=== PATIENT | female | born 1970 | race Caucasian/White ===

== ENCOUNTER 2018-04-04 23:17 | Emergency (ER) | payer MEDICARE, OTHER ==
[2018-04-04] MEDS ORDERED: BUPIVACAINE 0.5 % PF 150 MG/30 ML VIAL ONE (23:59)
[2018-04-05] MEDS ORDERED: BUPIVACAINE 0.5 % PF 150 MG/30 ML VIAL IJ ONE
[2018-04-05] MEDS ORDERED: LIDOCAINE HCL/PF 1% 30 ML SDV ONE
[2018-04-05] MEDS ORDERED: LIDOCAINE HCL/PF 1% 30 ML SDV IJ ONE (00:30)
== END 2018-04-05 00:38 | disposition home or self-care (01) ==
DX: S93.114A Dislocation of interphalangeal joint of right lesser toe(s), initial encounter (principal); F17.200 Nicotine dependence, unspecified, uncomplicated; W22.01XA Walked into wall, initial encounter; Y93.89 Activity, other specified; Y92.89 Other specified places as the place of occurrence of the external cause; Y99.8 Other external cause status

== ENCOUNTER 2018-07-31 18:55 | Emergency (ER) | payer MEDICARE, OTHER ==
--- NOTE | 2018-07-31 19:36 | NUR ---
called pt in wr, no response
== END 2018-07-31 19:53 | disposition home or self-care (01) ==
LOC: ER 18:56
DX: Z53.21 Procedure and treatment not carried out due to patient leaving prior to being seen by health care provider (principal)

== ENCOUNTER 2019-08-22 15:39 | Emergency (ER) | payer BC, MEDICARE, OTHER ==
[~2019-08-22] VITALS: Ht 162.6 cm; Wt 113.4 kg
[2019-08-22] MEDS ORDERED: IV NS 0.9% 500 ML BAG IV ONE (16:30)
[2019-08-22] MEDS ORDERED: ONDANSETRON HCL/PF - ER 4 MG/2 ML VIAL IV ONE (16:30)
[2019-08-22 16:39] LABS: BASOPHILS % (AUTO) 0.5 % (0.0-2.0); EOSINOPHILS % (AUTO) 1.3 % (0.0-6.0); HEMATOCRIT 40 % (33-45); HEMOGLOBIN 13.4 g/dL (11.5-14.8); LYMPHOCYTES # (AUTO) 1.5 /CMM (0.8-4.8); LYMPHOCYTES % (AUTO) 21.7 % (20.0-44.0); MEAN CORPUSCULAR HGB CONC 33 g/dl (31.0-36.0); MEAN CORPUSCULAR VOLUME 92 fL (82-100); MONOCYTES # (AUTO) 0.8 /CMM (0.1-1.30); MONOCYTES % (AUTO) 12.1 % (2.0-12.0); NEUTROPHILS # (AUTO) 4.5 /CMM (1.8-8.9); NEUTROPHILS % (AUTO) 64.4 % (43.0-81.0); PLATELET COUNT (AUTO) 290 /CMM (150-450); RED BLOOD CELL COUNT(AUTO) 4.39 MIL/uL (4.0-5.2)
--- NOTE | 2019-08-22 16:41 | NUR ---
PT REC;D TO ER C/O DIARRHEA FOR 1 WEK IV STARTED 20G IV LET AC LABS AND UA SENT TO LAB AWAITING EVALUATION BY ER PROVIDER.
[2019-08-22] MEDS ORDERED: ONDANSETRON HCL/PF 4 MG/2 ML VIAL ONE (16:47)
--- NOTE | 2019-08-22 16:52 | NUR ---
PT GIVEN MEDS PER MD ORDER VSS TALKING ON THE PHONE
[2019-08-22 16:54] LABS: ALBUMIN 3.5 g/dL (3.4-5.0); BILIRUBIN,DIRECT 0.1 mg/dL (0.0-0.2); BILIRUBIN,TOTAL 0.2 mg/dL (0.2-1.0); CALCIUM, SERUM 9.3 mg/dL (8.5-10.1); CREATININE 0.8 mg/dL (0.6-1.3); POTASSIUM 4.1 mmol/L (3.5-5.1); TOTAL PROTEIN, SERUM 7.5 g/dL (6.4-8.2)
[2019-08-22 16:56] LABS: BILIRUBIN,URINE Negative (NEGATIVE); BLOOD, URINE Large Ery/uL (NEGATIVE); COLOR,URINE Yellow (YELLOW); KETONES,URINE Negative (NEGATIVE); LEUKOCYTE ESTERASE ,URINE Small (NEGATIVE); NITRITE, URINE Negative (NEGATIVE); PROTEIN,URINE Negative (NEGATIVE); UGLUCOSE Negative (NEGATIVE); UROBILINOGEN,URINE 0.2 EU/dL (0.2)
[2019-08-22 16:58] LABS: APPEARANCE,URINE SLIGHTLY HAZY (CLEAR)
[2019-08-22 17:14] LABS: BACTERIA,URINE Many /HPF (None Seen)
[2019-08-22 17:15] LABS: SQUAMOUS EPITHELIAL CELL,UR Many /HPF (None Seen)
--- NOTE | 2019-08-22 17:35 | NUR ---
PT HAD A BM LOOSE STOOL VSS
--- NOTE | 2019-08-22 18:49 | NUR ---
PT. VERBALIZED UNDERSTANDING OF AFTERCARE INSTRUCTIONS.IV removed. Catheter intact and site benign. Pressure and 4x4 applied to site. No bleeding noted.Patient discharged to home in stable condition. Written and verbal after care instructions given. Patient verbalizes understanding of instruction.
[2019-08-22 18:50] VITALS: BP 119/76
== END 2019-08-22 18:51 | disposition home or self-care (01) ==
LOC: ER 15:40
DX: R19.7 Diarrhea, unspecified (principal); F17.200 Nicotine dependence, unspecified, uncomplicated; Z98.890 Other specified postprocedural states
CPT/HCPCS: 36415; 80048; 80076; 81001; 83690; 84702; 85025; 96361; 96374; 99283; 99406; J2405; J7030; 81000-TC; 87086-TC

== ENCOUNTER 2019-10-28 08:49 | Emergency (ER) | payer OTHER ==
[~2019-10-28] VITALS: Ht 162.6 cm; Wt 101.6 kg
--- NOTE | 2019-10-28 09:00 | NUR ---
epigastric pain, n/v/d x 1 week. was at urgent care last night. prescribed prilosec. no relief. Patient a/ox4, breathing even and unlabored, no sob noted, needs attended.
[2019-10-28] MEDS ORDERED: MAG HYDROX/AL HYDROX/SIMETH 30 ML UDC ONE ×2 (09:16→11:17)
[2019-10-28] MEDS ORDERED: LIDOCAINE VISCOUS 2% UD 15 ML UDC ONE ×2 (09:16→11:17)
[2019-10-28 09:27] LABS: APPEARANCE,URINE Clear (CLEAR); BILIRUBIN,URINE Negative (NEGATIVE); BLOOD, URINE Trace-intact Ery/uL (NEGATIVE); COLOR,URINE Yellow (YELLOW); KETONES,URINE Negative (NEGATIVE); LEUKOCYTE ESTERASE ,URINE Negative (NEGATIVE); NITRITE, URINE Negative (NEGATIVE); PROTEIN,URINE Negative (NEGATIVE); UGLUCOSE Negative (NEGATIVE); UROBILINOGEN,URINE 0.2 EU/dL (0.2)
[2019-10-28 09:29] LABS: BACTERIA,URINE Few /HPF (None Seen); SQUAMOUS EPITHELIAL CELL,UR Few /HPF (None Seen)
[2019-10-28] MEDS ORDERED: LIDOCAINE VISCOUS 2% UD 15 ML UDC MM ONE ×2 (09:30→11:30)
[2019-10-28] MEDS ORDERED: MAG HYDROX/AL HYDROX/SIMETH 30 ML UDC PO ONE ×2 (09:30→11:30)
[2019-10-28 09:38] LABS: BASOPHILS # (AUTO) 0.1 /CMM (0.0-0.2); BASOPHILS % (AUTO) 0.9 % (0.0-2.0); EOSINOPHILS % (AUTO) 1.7 % (0.0-6.0); HEMATOCRIT 40 % (33-45); HEMOGLOBIN 13.4 g/dL (11.5-14.8); LYMPHOCYTES # (AUTO) 2.3 /CMM (0.8-4.8); LYMPHOCYTES % (AUTO) 23.7 % (20.0-44.0); MEAN CORPUSCULAR HGB CONC 33 g/dl (31.0-36.0); MEAN CORPUSCULAR VOLUME 92 fL (82-100); MONOCYTES # (AUTO) 0.8 /CMM (0.1-1.30); MONOCYTES % (AUTO) 8.2 % (2.0-12.0); NEUTROPHILS # (AUTO) 6.5 /CMM (1.8-8.9); NEUTROPHILS % (AUTO) 65.5 % (43.0-81.0); PLATELET COUNT (AUTO) 307 /CMM (150-450); WHITE BLOOD COUNT (AUTO) 9.9 K/uL (4.3-11.0)
[2019-10-28 11:00] LABS: CALCIUM, SERUM 8.8 mg/dL (8.5-10.1); CREATININE 0.7 mg/dL (0.6-1.3); POTASSIUM 3.9 mmol/L (3.5-5.1)
[2019-10-28 11:07] LABS: ALBUMIN 3.3 g/dL (3.4-5.0); BILIRUBIN,DIRECT 0.1 mg/dL (0.0-0.2); BILIRUBIN,TOTAL 0.2 mg/dL (0.2-1.0); TOTAL PROTEIN, SERUM 7.3 g/dL (6.4-8.2)
[2019-10-28 11:41] VITALS: BP 128/76
--- NOTE | 2019-10-28 11:41 | NUR ---
Patient discharged to home in stable condition. Written and verbal after care instructions given. Patient verbalizes understanding of instruction.
== END 2019-10-28 11:42 | disposition home or self-care (01) ==
LOC: ER 08:50
DX: K80.50 Calculus of bile duct without cholangitis or cholecystitis without obstruction (principal); F10.10 Alcohol abuse, uncomplicated; F17.200 Nicotine dependence, unspecified, uncomplicated; Y90.9 Presence of alcohol in blood, level not specified; Z98.890 Other specified postprocedural states
CPT/HCPCS: 36415; 80048-TC; 80076-TC; 81000-TC; 83690-TC; 84703-TC; 85025-TC

== ENCOUNTER 2020-01-19 11:41 | Emergency (ER) | payer OTHER ==
[~2020-01-19] VITALS: Ht 154.9 cm; Wt 108.9 kg
--- NOTE | 2020-01-19 11:52 | NUR ---
patient came in to the er c/o headache since 2 am, 10/10 ps. on room air, breathing evenly and unlabored. ambulatory with steady gait. kept comfortable, will continue to monitor accordingly.
[2020-01-19] MEDS ORDERED: ONDANSETRON 4 MG TAB.RAPDIS SL ONE (12:00)
[2020-01-19] MEDS ORDERED: ACETAMINOPHEN ES 500 MG TABLET PO ONE (12:00)
[2020-01-19] MEDS ORDERED: ONDANSETRON 4 MG TAB.RAPDIS ONE (12:06)
[2020-01-19] MEDS ORDERED: ACETAMINOPHEN ES 500 MG TABLET ONE (12:06)
--- NOTE | 2020-01-19 12:30 | NUR ---
Patient resting. no distress noted. sStill c/o headache.
[2020-01-19] MEDS ORDERED: SUMATRIPTAN SUCCINATE 6 MG/0.5 ML VIAL SQ ONE ×2 (13:00→13:06)
--- NOTE | 2020-01-19 13:59 | NUR ---
Patient stated headache has improved. Ambulatory with steady gait. Patient discharged to home in stable condition. Written and verbal after care instructions given. Patient verbalizes understanding of instruction.
[2020-01-19 14:00] VITALS: BP 133/81
== END 2020-01-19 14:01 | disposition home or self-care (01) ==
LOC: ER 11:41
DX: R51 Headache (principal); F17.200 Nicotine dependence, unspecified, uncomplicated; Z98.890 Other specified postprocedural states
CPT/HCPCS: 70450; 96372; 99284; J3030; Q0162